=== PATIENT | female | born 1960 | race Caucasian/White ===

== ENCOUNTER 2016-11-26 21:15 | Emergency (ER) | payer BC ==
[2016-11-26 22:00] VITALS: PULSE 71; TEMP 98.1; BMI 27.3
--- NOTE | 2016-11-26 22:23 | PDOC ---
History of Present Illness - General Chief Complaint: Laceration Stated Complaint: RIGHT FOOT LACERATION Time Seen by Provider: 11/26/16 21:52 - History of Present Illness Initial Comments: This 56-year-old woman with no significant past medical history presents with right foot laceration. Just prior to presentation, as the patient was walking barefoot in her home, of heavy glass bottle of water broke on the kitchen floor. Although patient attempted not to walk on the shards of glass, she inadvertently stepped on glass fragment and sustained a laceration of the plantar surface of the right foot. No other injury sustained. Patient had some bleeding at home and presented here for evaluation. Patient believes that she had tetanus prophylaxis approximately 1 year ago when she presented with a wound to urgent care facility. No history of easy bruising/bleeding. No history of wound healing abnormalities or resistant organism colonization/infection. Patient denies taking any medication currently ALLERGY: Sporax (administered many years ago for fungal infection) Past History - Past Medical History Allergies/Adverse Reactions: Allergies Allergy/AdvReac Type Severity Reaction Status Date / Time ANTIFUNGAL Allergy Unknown Uncoded 11/26/16 21:51 Home Medications: Ambulatory Orders Cephalexin Monohydrate [Keflex -] 500 mg PO Q6H #28 capsule 11/27/16 - Psycho/Social/Smoking Cessation Hx Anxiety: No Suicidal Ideation: No Smoking History: Never smoked Hx Alcohol Use: No Drug/Substance Use Hx: No Substance Use Type: None Review of Systems - Review of Systems Able to Perform ROS?: Yes Comments:: 12 point review of systems is negative except for what is noted in the history of present illness *Physical Exam - Vital Signs Last Vital Signs Temp Pulse Resp BP Pulse Ox 98.1 F 71 16 127/106 100 11/26/16 21:48 11/26/16 21:48 11/26/16 21:48 11/26/16 21:48 11/26/16 21:48 - Physical Exam Comments: GENERAL: Adult female, mildly anxious but in no acute distress HEAD: Normal with no signs of trauma. EXTREMITIES: Normal range of motion, no edema. No clubbing or cyanosis. No erythema, or tenderness. NEUROLOGICAL: Cranial nerves II through XII grossly intact. Normal speech. No focal neurological deficits. MUSCULOSKELETAL: Back non-tender to palpation, no CVA tenderness SKIN: Warm, Dry, normal turgor, 3.5 cm full-thickness, mildly bleeding horizontal laceration plantar surface right foot, 2 cm proximal to the base of the hallux No further lacerations/abrasions/contusions evident Procedures - Laceration/Wound Repair Right Plantar Foot Wound Length: 2.6 to 5.0 cm Wound Explored: no foreign body present Wound's Depth, Shape: linear Irrigated w/ Saline: Yes Betadine Prep: No (Hibiclens/ethanol) Anesthesia: 1% Lidocaine Amount of Anesthetic (ccs): 3 Wound Repaired With: Sutures Suture Size/Type: 5:0 Number of Sutures: 4 Sterile Dressing Applied: Yes Progress: Right plantar surface laceration cleansed using Hibiclens/ethanol. 2 mL of 1% lidocaine infiltrated into the wound for local anesthesia. When anesthesia was obtained. Wound was irrigated with sterile normal saline (40 mL). No evidence of foreign body irrigated out. Therefore, depth of wound was examined and explored for presence of glass shard or other foreign body. This was performed using hemostat. In order to expose larger surface of the wound depth a small ( 0.5 cm) incision was made perpendicular to the laceration at mid point using a # 15 blade. Full depth of wound explored using hemostat and digitally, without evidence of foreign body. New setup of suture set obtained; gloves changed and wound thoroughly irrigated using 60 mL of normal saline. Wound closed using 4 interrupted sutures of 50 nylon. Bacitracin plus dry sterile dressing applied to the wound Patient tolerated his procedure well Progress Note - Progress Note Progress Note: As noted above, this 56-year-old woman presented with laceration of the right plantar surface, just proximal to the base of her great toe. This was sustained when she walked on broken water bottle glass shards. No evidence of motor/ sensory/vascular injury from the laceration. Because of the possibility of foreign body, plain film was obtained of her right foot. On the lateral aspect of the x-ray, small (approximately 4 mm ) density was seen in mid metatarsal area.. X-ray was sent to [facility] senior litigation paralegal for confirmation of possibility of foreign body. Preliminary result discussed with Dr. Arroyo of [facility] senior litigation paralegal who confirmed the radio dense, 4 mm object seen in mid metatarsal level. This was seen only in the lateral aspect and no other localizing hints could be seen on the oblique or AP views. Although this level would appear to be significantly more proximal than the patient's wound, wound exploration for the foreign body was performed as noted above. As noted in procedure note, no foreign body was palpated or retrieved on full exploration of the wound. The issue of foreign body was fully discussed with the patient and her family. The wound was closed with plan to start patient on antibiotic therapy (Keflex 500 mg 4 times a day for one week). Meanwhile, she should elevate foot as much as possible for the next 2 days and keep original dressing is dry as possible in place for that period of time. Patient was given a cast shoe for support of the wound. She was given Dr. Shahid Quijano (general surgeon) referral information with whom she should followup if she has persistent feeling of pain in the area of the wound after the initial 2-3 days. Sutures should be removed in approximately 10-14 days (December 08) *DC/Admit/Observation/Transfer Diagnosis at time of Disposition: Laceration - injury Laceration of right foot Qualifiers: Encounter type: initial encounter Qualified Code(s): S91.311A - Laceration without foreign body, right foot, initial encounter - Discharge Dispostion Disposition: HOME Condition at time of disposition: Stable - Prescriptions Prescriptions: Cephalexin Monohydrate [Keflex -] 500 mg PO Q6H #28 capsule - Referrals Referrals: Mony Soto [Primary Care Provider] - Shahid Quijano MD [Staff Physician] - - Patient Instructions Printed Discharge Instructions: How to Care for a Laceration After Repair Additional Instructions: Elevate right foot as much as possible over the next 24 hours Keep original dressing in place as dry as possible for 2 days After original dressing removed, protective dressing as needed/bacitracin to surface Keflex 500 mg 4 times a day for 1 week Motrin/Aleve/Tylenol as needed for pain have sutures removed on December 08 Return here if you have severe pain/swelling/redness in the area Follow-up with Dr. Quijano(general surgeon) if you have any sensation of glass in foot
[2016-11-27] MEDS ORDERED: CEPHALEXIN MONOHYDRATE 500 MG CAPSULE (UD) PO ONE (01:03)
[2016-11-27] MEDS ORDERED: IBUPROFEN 600 MG TABLET (FP) PO ONE ×2 (01:03→01:05)
[2016-11-27] MEDS ORDERED: CEPHALEXIN MONOHYDRATE 500 MG CAPSULE (UD) ONE (01:05)
[2016-11-27 01:16] VITALS: BP 158/81
== END 2016-11-27 01:16 | disposition home or self-care (01) ==
LOC: FER 21:15
PROC: 0HQMXZZ Repair Right Foot Skin, External Approach (ICD-10-PCS; principal; 2016-11-26)
DX: S91.311A Laceration without foreign body, right foot, initial encounter (principal); W25.XXXA Contact with sharp glass, initial encounter; Y93.89 Activity, other specified; Y92.009 Unspecified place in unspecified non-institutional (private) residence as the place of occurrence of the external cause
CPT/HCPCS: 73630-TC-RT; 99281-25